=== PATIENT | female | born 1980 | race Caucasian/White ===

== ENCOUNTER 2016-06-19 07:12 | Emergency (ER) | payer SELFPAY ==
--- NOTE | 2016-07-29 07:35 | ER ---
ADMIT: 06/19/2016 RM/LOC: ER [facility] MR#: [id number] [facility] [address] [place] [id number] EVA [address]ULL [address] [place] [address] Emergency Room Report SEX: F AGE: 35 : 1980 DATE: 06/19/2016 ADDENDUM: See T-sheet for complete H and P. The patient is a 35-year-old female, who comes in complaining of abdominal pain. It has been going on for the past week, has been waxing and waning in severity. 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 Her physical exam shows some mild epigastric tenderness. Otherwise, abdomen is soft. She has active bowel sounds. No rebound tenderness. No guarding. We checked a chest x-ray because she had some mild complaints of shortness of breath and it was normal. We also did a walking O2 saturation, when her sats were 100% on room air and her orthostatics were fine. Her CBC and chemistries were normal. She had a CRP of 1.07. Negative urine , and urinalysis showed 1+ ketones. The patient was stable at the time of discharge. DIAGNOSIS: Sent home with a diagnosis of anxiety. PLAN: To follow up with Dr. Swanson and was given some Xanax to be used as needed. Ravinder Albarado MD/ la JOB #: [id number] CC: Ravinder Albarado MD, Attending Physician Maddy Swanson MD, Family Physician
== END 2016-06-19 09:40 | disposition home or self-care (01) ==
LOC: ER 07:12
DX: F41.9 Anxiety disorder, unspecified (principal); R10.9 Unspecified abdominal pain; Z79.899 Other long term (current) drug therapy